=== PATIENT | male | born 1950 | race Caucasian/White ===

== ENCOUNTER 2020-12-14 10:21 | Outpatient (REF) | payer OTHER, SELFPAY ==
[2020-12-14 11:15] LABS: MANUAL DIFF FLAG NO
[2020-12-14 11:24] LABS: Basophils Absolute Auto 0.1 X10*3/uL (0.0-0.2); Basophils Percent Auto 1.6 % (0-2); Eosinophils Absolute Auto 0.5 X10*3/uL (0.0-0.4); Eosinophils Percent Auto 7.4 % (0-4); Hematocrit 50.7 % (42-52); Hemoglobin 17.6 g/dl (14.0-18.0); Imm Gran Abs Auto 0.01 X10*3/uL (0.00-0.03); Imm Gran Pct Auto 0.2 % (0.0-0.4); Lymphocytes Absolute Auto 2.1 X10*3/uL (1.2-4.9); Lymphocytes Percent Auto 33.6 % (20-40); Mean Corpuscular HGB Conc 34.7 g/dl (31.0-36.0); Mean Corpuscular Hemoglobin 30.3 pg (27.0-33.0); Mean Corpuscular Volume 87.4 fL (80-98); Mean Platelet Volume 10.6 fL (9.4-12.4); Monocytes Absolute Auto 0.5 X10*3/uL (0.1-1.2); Monocytes Percent Auto 8.3 % (2-11); Neutrophils Absolute Auto 3.1 X10*3/uL (2.0-8.3); Neutrophils Percent Auto 48.9 % (45-73); Platelet Count 277 X10*3/uL (160-400); Red Cell Distribution Width 13.5 % (11.0-16.0); White Blood Count 6.4 X10*3/uL (4.8-10.8)
[2020-12-14 11:38] LABS: Glucose Urine UA NEG (NEG); Leukocyte Esterase Urine NEG (NEG); Nitrite Urine NEG (NEG); Urine Blood NEG (NEG); Urine Ketones NEG (NEG); Urine Protein NEG (NEG-TRACE)
[2020-12-14 11:43] LABS: Alanine Aminotransferase 24 U/L (0-40); Albumin Level 4.2 g/dL (3.5-5.0); Alkaline Phosphatase 83 U/L (39-117); Anion Gap 13 (12-20); Aspartate Amino Transferase 18 U/L (5-37); Blood Urea Nitrogen 11 mg/dL (9-16); Calcium 9.4 mg/dL (8.4-10.2); Carbon Dioxide 24 mmol/L (22-29); Chloride 106 mmol/L (96-108); Cholesterol 182 mg/dL; Estimated Glomerular Filt Rate > 60; Glucose Fasting 112 mg/dL (60-99); HDL Cholesterol 53 mg/dL; LDL Cholesterol Calculated 103 mg/dl; Potassium 4.2 mmol/L (3.3-5.1); Sodium 139 mmol/L (135-145); Total Protein 6.9 g/dL (6.5-8.0); Triglycerides 132 mg/dL
[2020-12-14 11:46] LABS: Appearance Urine CLEAR; Color Urine YELLOW
[2020-12-14 11:52] LABS: Prostate Specific Antigen Scr 1.36 ng/mL (<0.05-4.0)
== END 2020-12-14 10:22 | disposition home or self-care (01) ==
LOC: HO.HMGCLDS 10:21
PROVIDERS: PCP Internal Medicine; Visit Provider Internal Medicine
DX: Z00.00 Encounter for general adult medical examination without abnormal findings (principal); I10 Essential (primary) hypertension; M19.90 Unspecified osteoarthritis, unspecified site; N40.0 Benign prostatic hyperplasia without lower urinary tract symptoms
CPT/HCPCS: 36415; 80053; 80061; 81003; 84153; 85025

== ENCOUNTER 2021-11-02 13:25 | Outpatient (REF) | payer OTHER, SELFPAY ==
[2021-11-02 16:33] LABS: MANUAL DIFF FLAG NO
[2021-11-02 16:39] LABS: Basophils Absolute Auto 0.1 X10*3/uL (0.0-0.2); Eosinophils Absolute Auto 0.3 X10*3/uL (0.0-0.4); Eosinophils Percent Auto 3.5 % (0-4); Hematocrit 52.4 % (42.0-52.0); Imm Gran Abs Auto 0.04 X10*3/uL (0.00-0.03); Imm Gran Pct Auto 0.4 % (0.0-0.4); Lymphocytes Absolute Auto 2.3 X10*3/uL (1.2-4.9); Lymphocytes Percent Auto 24.8 % (20-40); Mean Corpuscular HGB Conc 34.4 g/dl (31.0-36.0); Mean Corpuscular Hemoglobin 31.1 pg (27.0-33.0); Mean Corpuscular Volume 90.5 fL (80.0-98.0); Mean Platelet Volume 11.1 fL (9.4-12.4); Monocytes Absolute Auto 0.8 X10*3/uL (0.1-1.2); Monocytes Percent Auto 8.5 % (2-11); Neutrophils Absolute Auto 5.8 x10*3/uL (2.0-8.3); Neutrophils Percent Auto 61.8 % (45-73); Platelet Count 315 X10*3/uL (160-400); Red Blood Count 5.79 X10*6/uL (4.60-5.80); Red Cell Distribution Width 12.8 % (11.0-16.0); White Blood Count 9.4 X10*3/uL (4.8-10.8)
[2021-11-02 16:55] LABS: Alanine Aminotransferase 16 U/L (0-40); Albumin Level 4.3 g/dL (3.5-5.0); Alkaline Phosphatase 86 U/L (39-117); Anion Gap 16 (12-20); Aspartate Amino Transferase 10 U/L (5-37); Blood Urea Nitrogen 14 mg/dL (9-16); Calcium 10.1 mg/dL (8.4-10.2); Carbon Dioxide 22 mmol/L (22-29); Chloride 104 mmol/L (96-108); Estimated Glomerular Filt Rate > 60; Glucose Random 107 mg/dL (60-115); Iron 153 mcg/dL (45-160); Percent Iron Saturation 48 % (15-50); Potassium 4.3 mmol/L (3.3-5.1); Sodium 138 mmol/L (135-145); Total Iron Binding Capacity 317 mcg/dL (228-428); Total Protein 7.3 g/dL (6.5-8.0); Unsaturated Iron Binding 164 ug/dL
[2021-11-02 17:15] LABS: Ferritin 48 ng/mL (20-250)
== END 2021-11-02 13:26 | disposition home or self-care (01) ==
LOC: HO.HMGCLDS 13:25
PROVIDERS: Visit Provider Internal Medicine
DX: I12.9 Hypertensive chronic kidney disease with stage 1 through stage 4 chronic kidney disease, or unspecified chronic kidney disease (principal); N18.9 Chronic kidney disease, unspecified; I10 Essential (primary) hypertension; K21.9 Gastro-esophageal reflux disease without esophagitis; E83.119 Hemochromatosis, unspecified
CPT/HCPCS: 36415; 80053; 82728; 83540; 85025

== ENCOUNTER 2022-01-30 09:42 | Outpatient (REF) | payer OTHER, SELFPAY ==
[2022-01-30 12:00] LABS: Prostate Specific Antigen 1.61 ng/mL (<0.05-4.0)
[2022-01-30 12:07] LABS: Cholesterol 171 mg/dL; HDL Cholesterol 57 mg/dL; LDL Cholesterol Calculated 98 mg/dl; Triglycerides 81 mg/dL
== END 2022-01-30 09:43 | disposition home or self-care (01) ==
LOC: HO.HMGCLDS 09:42
PROVIDERS: PCP Internal Medicine; Visit Provider Internal Medicine
DX: Z12.5 Encounter for screening for malignant neoplasm of prostate (principal); N40.0 Benign prostatic hyperplasia without lower urinary tract symptoms; I10 Essential (primary) hypertension; K21.9 Gastro-esophageal reflux disease without esophagitis
CPT/HCPCS: 36415; 80061; 84153

== ENCOUNTER 2022-04-25 09:59 | Outpatient (REF) | payer OTHER, MEDICARE, SELFPAY ==
[2022-04-25 10:31] LABS: MANUAL DIFF FLAG NO
[2022-04-25 10:36] LABS: Basophils Absolute Auto 0.1 X10*3/uL (0.0-0.2); Basophils Percent Auto 1.8 % (0-2); Eosinophils Absolute Auto 0.4 X10*3/uL (0.0-0.4); Eosinophils Percent Auto 5.1 % (0-4); Hematocrit 51.4 % (42.0-52.0); Hemoglobin 17.9 g/dl (14.0-18.0); Imm Gran Abs Auto 0.03 X10*3/uL (0.00-0.03); Imm Gran Pct Auto 0.4 % (0.0-0.4); Lymphocytes Absolute Auto 2.1 X10*3/uL (1.2-4.9); Mean Corpuscular HGB Conc 34.8 g/dl (31.0-36.0); Mean Corpuscular Hemoglobin 32.3 pg (27.0-33.0); Mean Corpuscular Volume 92.8 fL (80.0-98.0); Mean Platelet Volume 10.3 fL (9.4-12.4); Monocytes Absolute Auto 0.7 X10*3/uL (0.1-1.2); Monocytes Percent Auto 10.1 % (2-11); Neutrophils Absolute Auto 3.7 x10*3/uL (2.0-8.3); Neutrophils Percent Auto 52.6 % (45-73); Platelet Count 257 X10*3/uL (160-400); Red Blood Count 5.54 X10*6/uL (4.60-5.80); Red Cell Distribution Width 13.1 % (11.0-16.0)
[2022-04-25 11:05] LABS: Alanine Aminotransferase 20 U/L (0-40); Albumin Level 4.3 g/dL (3.5-5.0); Alkaline Phosphatase 76 U/L (39-117); Anion Gap 15 (12-20); Aspartate Amino Transferase 14 U/L (5-37); Bilirubin Total 0.9 mg/dL (0.0-1.0); Blood Urea Nitrogen 12 mg/dL (9-16); Calcium 9.5 mg/dL (8.4-10.2); Carbon Dioxide 25 mmol/L (22-29); Chloride 103 mmol/L (96-108); Estimated Glomerular Filt Rate 56; Glucose Random 115 mg/dL (60-115); Sodium 139 mmol/L (135-145); Total Protein 7.1 g/dL (6.5-8.0)
== END 2022-04-25 10:00 | disposition home or self-care (01) ==
LOC: HO.10HDL 09:59
PROVIDERS: Visit Provider Internal Medicine
DX: I10 Essential (primary) hypertension (principal); E78.00 Pure hypercholesterolemia, unspecified; K21.9 Gastro-esophageal reflux disease without esophagitis
CPT/HCPCS: 36415; 80053; 85025

== ENCOUNTER 2022-05-29 10:26 | Day surgery (SDC) | payer OTHER, MEDICARE, SELFPAY ==
[2022-05-24 12:40] VITALS: BMI 31.6
--- NOTE | 2022-05-26 13:56 | P.CONAN_ITS ---
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 GERD (gastroesophageal reflux disease) Hemochromatosis, hereditary HTN (hypertension) Insomnia On beta sukhwinder at home Tubular adenoma Surgical History Surgical History History of esophagogastroduodenoscopy (EGD) History of lumbar discectomy Hx of colonoscopy Hx of left knee surgery Social History Social History Patient Tobacco Use Status: Former Tobacco user Are you DNR?: No Advance Directives: No Advance Directives Information Provided: Yes Nutrition Risks: No Nutritional Risk Meds Allergies Allergy/AdvReac Type Severity Reaction Status Date / Time shrimp Allergy Unknown HIVES Verified 05/29/22 10:56 lisinopril Allergy Unknown Verified 05/29/22 10:56 LOBSTER Allergy Unknown HIVES Uncoded 05/24/22 12:35 Home Medications Medication Instructions Recorded Confirmed Last Taken Type amlodipine 10 mg tablet 10 mg PO DAILY 05/24/22 05/24/22 05/29/22 History losartan 25 mg tablet 25 mg PO DAILY 05/24/22 05/24/22 05/29/22 History metoprolol succinate 50 mg 50 mg PO DAILY 05/24/22 05/24/22 05/29/22 History tablet,extended release 24 hr omeprazole 20 mg capsule,delayed 20 mg PO DAILY 05/24/22 05/24/22 05/29/22 History release Exam Exam Date and Time: May 26, 2022 1356 Height,Weight and Vital Signs: Height 5 ft 11 in Weight 102.965 kg Pertinent Lab Results Pertinent Lab Results: Laboratory Tests 04/25/22 04/25/22 10:05 10:05 WBC 7.0 Hgb 17.9 Hct 51.4 Plt Count 257 Sodium 139 Potassium 4.0 Chloride 103 Carbon Dioxide 25 BUN 12 Creatinine 1.28 Assessment and Plan Assessment Anesthesia Assessment: Chart Reviewed Documented by User: Petrona Reyna MD 05/29/22 11:34 PMFSH Active Problems Active Problems: Denies MATT Past Medical History Medical History Anxiety Back pain Barretts esophagus Failed total left knee replacement GERD (gastroesophageal reflux disease) Hemochromatosis, hereditary HTN (hypertension) Insomnia On beta sukhwinder at home Tubular adenoma Family History Family history of problems with anesthesia: No Surgical History Surgical History History of esophagogastroduodenoscopy (EGD) History of lumbar discectomy Hx of colonoscopy Hx of left knee surgery History of Problems with Anesthesia: No Social History Social History Patient Tobacco Use Status: Former Tobacco user Are you DNR?: No Advance Directives: No Advance Directives Information Provided: Yes Nutrition Risks: No Nutritional Risk Meds Allergies Allergy/AdvReac Type Severity Reaction Status Date / Time shrimp Allergy Unknown HIVES Verified 05/29/22 10:56 lisinopril Allergy Unknown Verified 05/29/22 10:56 LOBSTER Allergy Unknown HIVES Uncoded 05/24/22 12:35 Home Medications Medication Instructions Recorded Confirmed Last Taken Type amlodipine 10 mg tablet 10 mg PO DAILY 05/24/22 05/24/22 05/29/22 History losartan 25 mg tablet 25 mg PO DAILY 05/24/22 05/24/22 05/29/22 History metoprolol succinate 50 mg 50 mg PO DAILY 05/24/22 05/24/22 05/29/22 History tablet,extended release 24 hr omeprazole 20 mg capsule,delayed 20 mg PO DAILY 05/24/22 05/24/22 05/29/22 History release Exam Height,Weight and Vital Signs: Height 5 ft 11 in Weight 102.965 kg Vital Signs Temp Pulse Resp BP Pulse Ox O2 Del Method 05/29/22 10:45 98.4 F 97 17 116/57 L 98 Room Air Airway Mallampati Class: III TM Dist: >3cm Neck ROM: Full Loose/Missing/Broken Teeth: Yes (Some missing) Heart: RRR Lungs: CTAB Assessment and Plan Assessment Anesthesia Assessment: Anesthesia Plan Discussed Final Anesthetic Review Family History of Problems with Anesthesia: No History of Problems with Anesthesia: No NPO: Yes ASA Class: III Final Preanesthetic Review: No Changes in Pt Med Stat, Meds/Allgs Chart Reviewed, Consent Obtained/Reviewed and Anes Risks/Benef Reviewed Patient Risk: Intermediate Procedure Risk: Low Assessment/Block/Sedation in SS: Assess/Block/Sedation-SS Anesthetic Plan Anesthetic Plan: MAC: Disposition: Standard PACU
[2022-05-29 10:45] VITALS: BP 116/57; PULSE 97; RESP 17; TEMP 36.9; O2SAT 98
[2022-05-29] MEDS: Lactated Ringers 1,000 ML 100 ML IVCONT (10:57)
[2022-05-29 12:54] VITALS: BP 158/90; PULSE 63; RESP 24; TEMP 36.1; O2SAT 96
--- NOTE | 2022-05-29 12:57 | PM.OP ---
Brief Operative Note Date of Service: 05/29/22 Pre-op diagnosis: Silveira's, Screening Post-op diagnosis: other (Same, Hiatal hernia, Colon polyps, Cecal AVM's) Procedure: EGD with bx, Colonoscopy to the cecum with bx/removal of polyps Surgeon: Nikolas Paige Anesthesia: MAC Was an Manufacturing Team Member used for this Procedure?: No Estimated blood loss (mL): 2.0 Pathology: other (A. EG Junction at 39cm B. Submucosal antral lesion C. Ascending colon polyp D. Polyp at 40cm) Condition: stable Disposition: PACU
[2022-05-29 13:09] VITALS: BP 175/95; PULSE 55; RESP 20; O2SAT 98
[2022-05-29 13:24] VITALS: PULSE 58; RESP 20; TEMP 36.1; O2SAT 98
--- NOTE | 2022-05-29 23:29 | OP_ITS ---
SURGEON: Nikolas Paige MD INDICATIONS: The patient presents for evaluation of Silveira esophagus, personal history of tubular adenomas of the colon, and colorectal cancer screening. Full consent has been obtained from him for both procedures, including risks of bleeding and perforation. PREOPERATIVE DIAGNOSIS: POSTOPERATIVE DIAGNOSIS: PROCEDURE PERFORMED: Esophagogastroduodenoscopy with biopsies, and colonoscopy to the cecum with biopsy and removal of polyps. ESTIMATED BLOOD LOSS: COMPLICATIONS: ANESTHESIA: Monitored anesthesia care. ASSISTANTS: SPECIMENS: PREOPERATIVE DIAGNOSES: History of Silveira esophagus, history of tubular adenoma of the colon, colorectal cancer screening. POSTOPERATIVE DIAGNOSES: History of Silveira esophagus, history of tubular adenoma of the colon, colorectal cancer screening, hiatal hernia, colon polyps, angiodysplasia of colon. DESCRIPTION OF PROCEDURE: The patient was placed in the left lateral decubitus position. The Olympus videogastroscope was passed in the posterior oropharynx and upper esophagus under direct vision. The scope was passed slowly into the distal esophagus. The gastroesophageal junction appeared at 39 cm. There was some slight irregularity consistent with reflux and possibly small, less than 1 cm, areas of Silveira mucosa. There was no esophagitis, nor any lesions. The scope entered the stomach. There was a small to moderate-sized hiatal hernia. The scope was advanced to pylorus and duodenum was cannulated to the descending portion. The duodenum including the bulb appeared normal without mass or ulceration. The scope was withdrawn back to the stomach. The gastric antrum and body appeared normal other than, what appeared to be, a submucosal lesion in the gastric antrum consistent with either a lipoma or perhaps a benign leiomyoma. The overlying mucosa was normal. It was relatively soft when probed with a biopsy forceps. Biopsies were obtained from it. There was good peristalsis. Scope was retroflexed visualizing the proximal stomach carefully, which appeared normal, without any sign of mass or ulceration. Scope was straightened and withdrawn back to the esophagus. Multiple biopsies were obtained at the EG junction at 39 cm. Proximal to this, the esophageal mucosa appeared normal. The scope was withdrawn from the patient. He was turned around for colonoscopy. The digital rectal exam revealed no abnormalities. The Olympus video pediatric colonoscope was entered into the rectum and advanced easily to the cecum. Once in the cecum, I did identify cecal pouch with normal-appearing appendiceal orifice and normal-appearing ileocecal valve. There were less than 5 mm nonbleeding angiodysplasias in the cecum. The remainder of the cecum appeared normal. Scope was then slowly withdrawn assessing all mucosal surfaces carefully. Preparation was excellent. In the ascending colon and at 40 cm were flat less than 5 mm polyps, each of which were biopsied and completely removed with a cold biopsy forceps. I did not visualize any other polyps, colitis, nor angiodysplasia. There was a moderate amount of sigmoid diverticulosis. In the rectum, scope was retroflexed visualizing internal hemorrhoids, but no other pathology. The rectal mucosa appeared normal. The scope was straightened and withdrawn from the patient. He tolerated the procedure well and was returned to the recovery area in stable condition. IMPRESSION: 1. Hiatal hernia, gastroesophageal reflux, history of Silveira esophagus. 2. Benign submucosal gastric lesion, status post biopsy. 3. Nonbleeding cecal angiodysplasias. 4. Small colon polyps. 5. Diverticulosis. 6. Internal hemorrhoids. PLAN: The results of the biopsy will be checked. I would recommend a repeat upper endoscopy and colonoscopy in 5 years for further surveillance. He was advised to continue his daily omeprazole. He was advised not to use any aspirin and NSAIDs for 1 week. MD SYED Le/JOSEPH / [id number]
== END 2022-05-29 13:55 | disposition home or self-care (01) ==
PROVIDERS: PCP Internal Medicine; Visit Provider Internal Medicine
PROC: (CPT 45380; principal; 2022-05-29 11:30)
DX: Z12.11 Encounter for screening for malignant neoplasm of colon (principal); Z86.010 Personal history of colon polyps; D12.2 Benign neoplasm of ascending colon; K63.5 Polyp of colon; K55.20 Angiodysplasia of colon without hemorrhage; K57.30 Diverticulosis of large intestine without perforation or abscess without bleeding; K64.8 Other hemorrhoids; K22.70 Barrett's esophagus without dysplasia; K21.9 Gastro-esophageal reflux disease without esophagitis; K44.9 Diaphragmatic hernia without obstruction or gangrene; E83.110 Hereditary hemochromatosis; I10 Essential (primary) hypertension; F41.1 Generalized anxiety disorder; G47.00 Insomnia, unspecified; Z79.899 Other long term (current) drug therapy; Z87.891 Personal history of nicotine dependence
CPT/HCPCS: 45380; 43239; 88305; 88342

== ENCOUNTER 2022-09-20 09:05 | Outpatient (REF) | payer MEDICARE, OTHER, SELFPAY ==
[2022-09-20 12:11] LABS: Anion Gap 14 (12-20); Blood Urea Nitrogen 9 mg/dL (9-16); Calcium 9.8 mg/dL (8.4-10.2); Carbon Dioxide 25 mmol/L (22-29); Chloride 105 mmol/L (96-108); Estimated Glomerular Filt Rate 58; Glucose Random 115 mg/dL (60-115); Potassium 4.2 mmol/L (3.3-5.1); Sodium 140 mmol/L (135-145)
== END 2022-09-20 09:06 | disposition home or self-care (01) ==
LOC: HO.HMGCLDS 09:05
PROVIDERS: PCP Internal Medicine; Visit Provider Internal Medicine
DX: I12.9 Hypertensive chronic kidney disease with stage 1 through stage 4 chronic kidney disease, or unspecified chronic kidney disease (principal); N18.9 Chronic kidney disease, unspecified
CPT/HCPCS: 36415; 80048

== ENCOUNTER 2022-11-09 11:30 | Outpatient (REF) | payer MEDICARE, OTHER, SELFPAY ==
--- NOTE | ~2022-11-09 | XR_ITS ---
EXAMINATION: XR CHEST CLINICAL INFORMATION: Hypertension. COMPARISON: None TECHNIQUE: 2 views of the chest were obtained. FINDINGS: No significant abnormality is noted involving the heart, lungs, mediastinum, bony thorax or soft tissues. XR/XR chest 2V IMPRESSION: No acute cardiopulmonary process.
[2022-11-09 13:56] LABS: MANUAL DIFF FLAG NO
[2022-11-09 14:20] LABS: Basophils Absolute Auto 0.1 X10*3/uL (0.0-0.2); Basophils Percent Auto 1.4 % (0-2); Eosinophils Absolute Auto 0.4 X10*3/uL (0.0-0.4); Hematocrit 54.2 % (42.0-52.0); Hemoglobin 19.1 g/dl (14.0-18.0); Imm Gran Abs Auto 0.04 X10*3/uL (0.00-0.03); Imm Gran Pct Auto 0.5 % (0.0-0.4); Lymphocytes Absolute Auto 2.3 X10*3/uL (1.2-4.9); Lymphocytes Percent Auto 25.7 % (20-40); Mean Corpuscular HGB Conc 35.2 g/dl (31.0-36.0); Mean Corpuscular Hemoglobin 32.4 pg (27.0-33.0); Mean Platelet Volume 10.5 fL (9.4-12.4); Monocytes Absolute Auto 0.8 X10*3/uL (0.1-1.2); Monocytes Percent Auto 9.6 % (2-11); Neutrophils Absolute Auto 5.2 x10*3/uL (2.0-8.3); Neutrophils Percent Auto 58.8 % (45-73); Platelet Count 351 X10*3/uL (160-400); Red Blood Count 5.89 X10*6/uL (4.60-5.80); Red Cell Distribution Width 12.7 % (11.0-16.0); White Blood Count 8.8 X10*3/uL (4.8-10.8)
[2022-11-09 14:23] LABS: D Dimer High Sensitivity 183 NG/ML
[2022-11-09 14:39] LABS: B Type Natriuretic Peptide 30 pg/mL (<100)
[2022-11-09 16:34] LABS: Alanine Aminotransferase 18 U/L (0-40); Albumin Level 4.2 g/dL (3.5-5.0); Alkaline Phosphatase 89 U/L (39-117); Anion Gap 14 (12-20); Aspartate Amino Transferase 12 U/L (5-37); Bilirubin Total 0.9 mg/dL (0.0-1.0); Blood Urea Nitrogen 16 mg/dL (9-16); C Reactive Protein 0.94 mg/dL (< or = 0.50); Carbon Dioxide 24 mmol/L (22-29); Chloride 103 mmol/L (96-108); Estimated Glomerular Filt Rate 52; Glucose Random 109 mg/dL (60-115); Potassium 4.3 mmol/L (3.3-5.1); Sodium 137 mmol/L (135-145); Total Protein 6.9 g/dL (6.5-8.0)
[2022-11-09 16:56] LABS: Vitamin B12 438 pg/mL (200-900)
== END 2022-11-09 11:31 | disposition home or self-care (01) ==
LOC: HO.HMGCLDS 11:30
PROVIDERS: PCP Internal Medicine; Visit Provider Internal Medicine
DX: R53.83 Other fatigue (principal); I10 Essential (primary) hypertension
CPT/HCPCS: 36415; 71046; 80053; 82550; 82607; 83880; 84443; 85025; 85379; 86140

== ENCOUNTER 2023-08-21 10:59 | Outpatient (REF) | payer MEDICARE, OTHER, SELFPAY ==
[2023-08-21 13:44] LABS: MANUAL DIFF FLAG NO
[2023-08-21 13:51] LABS: Basophils Absolute Auto 0.1 X10*3/uL (0.0-0.2); Basophils Percent Auto 1.4 % (0-2); Eosinophils Absolute Auto 0.3 X10*3/uL (0.0-0.4); Eosinophils Percent Auto 3.2 % (0-4); Hematocrit 54.2 % (42.0-52.0); Hemoglobin 18.6 g/dl (14.0-18.0); Imm Gran Abs Auto 0.03 X10*3/uL (0.00-0.03); Imm Gran Pct Auto 0.4 % (0.0-0.4); Lymphocytes Absolute Auto 2.2 X10*3/uL (1.2-4.9); Lymphocytes Percent Auto 28.2 % (20-40); Mean Corpuscular HGB Conc 34.3 g/dl (31.0-36.0); Mean Corpuscular Hemoglobin 31.7 pg (27.0-33.0); Mean Corpuscular Volume 92.5 fL (80.0-98.0); Mean Platelet Volume 10.9 fL (9.4-12.4); Monocytes Absolute Auto 0.7 X10*3/uL (0.1-1.2); Monocytes Percent Auto 8.9 % (2-11); Neutrophils Absolute Auto 4.6 x10*3/uL (2.0-8.3); Neutrophils Percent Auto 57.9 % (45-73); Platelet Count 308 X10*3/uL (160-400); Red Blood Count 5.86 X10*6/uL (4.60-5.80); Red Cell Distribution Width 12.7 % (11.0-16.0); White Blood Count 7.9 X10*3/uL (4.8-10.8)
[2023-08-21 14:35] LABS: Prostate Specific Antigen 6.85 ng/mL (<0.05-4.0)
[2023-08-21 14:36] LABS: Alanine Aminotransferase 26 U/L (0-40); Albumin Level 4.2 g/dL (3.5-5.0); Alkaline Phosphatase 74 U/L (39-117); Anion Gap 15 (12-20); Aspartate Amino Transferase 15 U/L (5-37); Bilirubin Total 0.7 mg/dL (0.0-1.0); Blood Urea Nitrogen 11 mg/dL (9-16); Calcium 9.7 mg/dL (8.4-10.2); Carbon Dioxide 24 mmol/L (22-29); Chloride 104 mmol/L (96-108); Cholesterol 160 mg/dL (<200); Estimated Glomerular Filt Rate > 60; Glucose Fasting 114 mg/dL (60-99); HDL Cholesterol 54 mg/dL (>40); LDL Cholesterol Calculated 82 mg/dL (<100); Potassium 3.9 mmol/L (3.3-5.1); Sodium 139 mmol/L (135-145); Total Protein 7.3 g/dL (6.5-8.0); Triglycerides 122 mg/dL (<150)
== END 2023-08-21 11:00 | disposition home or self-care (01) ==
LOC: HO.HMGCLDS 10:59
PROVIDERS: PCP Internal Medicine; Visit Provider Internal Medicine
DX: I12.9 Hypertensive chronic kidney disease with stage 1 through stage 4 chronic kidney disease, or unspecified chronic kidney disease (principal); N18.9 Chronic kidney disease, unspecified; K21.9 Gastro-esophageal reflux disease without esophagitis; K57.90 Diverticulosis of intestine, part unspecified, without perforation or abscess without bleeding; Z12.5 Encounter for screening for malignant neoplasm of prostate
CPT/HCPCS: 36415; 80053; 80061; 84153; 85025

== ENCOUNTER 2023-09-21 10:28 | Outpatient (REF) | payer MEDICARE, OTHER, SELFPAY ==
[2023-09-21 14:14] LABS: Ferritin 112 ng/mL (20-250); Iron 170 mcg/dL (45-160); Percent Iron Saturation 64 % (15-50); Total Iron Binding Capacity 264 mcg/dL (228-428); Unsaturated Iron Binding 94 ug/dL
[2023-09-21 14:21] LABS: Prostate Specific Antigen 2.08 ng/mL (<0.05-4.0)
== END 2023-09-21 10:29 | disposition home or self-care (01) ==
LOC: HO.HMGCLDS 10:28
PROVIDERS: PCP Internal Medicine; Visit Provider Internal Medicine
DX: R97.20 Elevated prostate specific antigen [PSA] (principal); R71.8 Other abnormality of red blood cells; Z12.5 Encounter for screening for malignant neoplasm of prostate
CPT/HCPCS: 36415; 82728; 83540; 84153

== ENCOUNTER 2023-12-19 13:08 | Outpatient (REF) | payer MEDICARE, OTHER, SELFPAY ==
[2023-12-19 16:13] LABS: MANUAL DIFF FLAG NO
[2023-12-19 16:26] LABS: Basophils Absolute Auto 0.1 X10*3/uL (0.0-0.2); Basophils Percent Auto 1.4 % (0-2); Eosinophils Absolute Auto 0.6 X10*3/uL (0.0-0.4); Eosinophils Percent Auto 7.2 % (0-4); Hematocrit 45.9 % (42.0-52.0); Imm Gran Abs Auto 0.04 X10*3/uL (0.00-0.03); Imm Gran Pct Auto 0.5 % (0.0-0.4); Lymphocytes Percent Auto 25.4 % (20-40); Mean Corpuscular HGB Conc 34.9 g/dl (31.0-36.0); Mean Corpuscular Hemoglobin 32.1 pg (27.0-33.0); Mean Platelet Volume 10.8 fL (9.4-12.4); Monocytes Absolute Auto 0.9 X10*3/uL (0.1-1.2); Monocytes Percent Auto 12.2 % (2-11); Neutrophils Absolute Auto 4.1 x10*3/uL (2.0-8.3); Neutrophils Percent Auto 53.3 % (45-73); Platelet Count 298 X10*3/uL (160-400); Red Blood Count 4.99 X10*6/uL (4.60-5.80); White Blood Count 7.7 X10*3/uL (4.8-10.8)
[2023-12-19 17:56] LABS: Alanine Aminotransferase 19 U/L (0-40); Albumin Level 3.9 g/dL (3.5-5.0); Alkaline Phosphatase 88 U/L (39-117); Anion Gap 16 (12-20); Aspartate Amino Transferase 16 U/L (5-37); Bilirubin Total 0.5 mg/dL (0.0-1.0); Blood Urea Nitrogen 8 mg/dL (9-16); Calcium 9.6 mg/dL (8.4-10.2); Carbon Dioxide 21 mmol/L (22-29); Chloride 104 mmol/L (96-108); Estimated Glomerular Filt Rate > 60; Ferritin 197 ng/mL (20-250); Glucose Random 88 mg/dL (60-115); Iron 79 mcg/dL (45-160); Percent Iron Saturation 35 % (15-50); Potassium 3.8 mmol/L (3.3-5.1); Sodium 137 mmol/L (135-145); Total Iron Binding Capacity 228 mcg/dL (228-428); Total Protein 7.1 g/dL (6.5-8.0); Unsaturated Iron Binding 149 ug/dL
== END 2023-12-19 13:09 | disposition home or self-care (01) ==
LOC: HO.HMGCLDS 13:08
PROVIDERS: PCP Internal Medicine; Visit Provider Internal Medicine
DX: I10 Essential (primary) hypertension (principal); E83.110 Hereditary hemochromatosis
CPT/HCPCS: 36415; 80053; 82728; 83540; 85025

== ENCOUNTER 2024-02-12 09:39 | Outpatient (REF) | payer MEDICARE, OTHER, SELFPAY ==
[2024-02-12 11:31] LABS: Appearance Urine Clear; Color Urine Yellow; Glucose Urine UA Negative (Negative); Leukocyte Esterase Urine Moderate (2+) (Negative); Nitrite Urine Negative (Negative); PH 5.5 (5.0-9.0); Specific Gravity - Urine 1.015 (1.005-1.025); UMIC TRIGGER UACC YES; Urine Blood Trace (Negative); Urine Ketones Negative (Negative); Urine Protein Trace mg/dL (Neg-Trace)
[2024-02-12 11:33] LABS: Bacteria Urine None Seen (None Seen); Hyaline Casts Urine 0-2 /LPF (0-2); RBC Urine 0-2 /HPF (0-2); Squamous Epithelial Cell Urine 0-2 /HPF (0-2); UACC Culture Trigger YES; WBC Urine >50 /HPF (0-5)
== END 2024-02-12 09:40 | disposition home or self-care (01) ==
LOC: HO.10HDLNP 09:39
PROVIDERS: Visit Provider Internal Medicine
DX: R30.0 Dysuria (principal)
CPT/HCPCS: 81001; 87086

== ENCOUNTER 2024-07-03 11:08 | Outpatient (REF) | payer MEDICARE, OTHER, SELFPAY ==
[2024-07-03 13:25] LABS: MANUAL DIFF FLAG NO
[2024-07-03 14:02] LABS: Basophils Absolute Auto 0.1 X10*3/uL (0.0-0.2); Basophils Percent Auto 1.6 % (0-2); Eosinophils Absolute Auto 0.4 X10*3/uL (0.0-0.4); Eosinophils Percent Auto 4.4 % (0-4); Hemoglobin 19.5 g/dl (14.0-18.0); Imm Gran Abs Auto 0.03 X10*3/uL (0.00-0.03); Imm Gran Pct Auto 0.4 % (0.0-0.4); Lymphocytes Absolute Auto 3.1 X10*3/uL (1.2-4.9); Lymphocytes Percent Auto 36.2 % (20-40); Mean Corpuscular HGB Conc 35.3 g/dl (31.0-36.0); Mean Corpuscular Hemoglobin 31.2 pg (27.0-33.0); Mean Corpuscular Volume 88.2 fL (80.0-98.0); Mean Platelet Volume 11.3 fL (9.4-12.4); Monocytes Absolute Auto 0.9 X10*3/uL (0.1-1.2); Monocytes Percent Auto 10.2 % (2-11); Neutrophils Percent Auto 47.2 % (45-73); Platelet Count 300 X10*3/uL (160-400); Red Blood Count 6.26 X10*6/uL (4.60-5.80); Red Cell Distribution Width 13.9 % (11.0-16.0); White Blood Count 8.5 X10*3/uL (4.8-10.8)
[2024-07-03 14:06] LABS: Hematocrit 55.2 % (42.0-52.0)
[2024-07-03 14:24] LABS: Alanine Aminotransferase 26 U/L (0-40); Albumin Level 4.3 g/dL (3.5-5.0); Alkaline Phosphatase 84 U/L (39-117); Anion Gap 13 (12-20); Aspartate Amino Transferase 23 U/L (5-37); Bilirubin Total 0.8 mg/dL (0.0-1.0); Blood Urea Nitrogen 11 mg/dL (9-16); Calcium 10.1 mg/dL (8.4-10.2); Carbon Dioxide 21 mmol/L (22-29); Chloride 108 mmol/L (96-108); Estimated Glomerular Filt Rate 53; Glucose Random 124 mg/dL (60-115); Iron 218 mcg/dL (45-160); Percent Iron Saturation 76 % (15-50); Potassium 3.9 mmol/L (3.3-5.1); Sodium 138 mmol/L (135-145); Total Iron Binding Capacity 285 mcg/dL (228-428); Total Protein 7.4 g/dL (6.5-8.0); Unsaturated Iron Binding 67 ug/dL
[2024-07-03 14:27] LABS: Ferritin 59 ng/mL (20-250)
== END 2024-07-03 11:09 | disposition home or self-care (01) ==
LOC: HO.HMGCLDS 11:08
PROVIDERS: PCP Internal Medicine; Visit Provider Internal Medicine
DX: I10 Essential (primary) hypertension (principal); K57.90 Diverticulosis of intestine, part unspecified, without perforation or abscess without bleeding
CPT/HCPCS: 36415; 80053; 82728; 83540; 85025

== ENCOUNTER 2024-10-06 11:10 | Outpatient (REF) | payer MEDICARE, OTHER, SELFPAY ==
[2024-10-06 13:14] LABS: MANUAL DIFF FLAG NO
[2024-10-06 13:23] LABS: Basophils Absolute Auto 0.1 X10*3/uL (0.0-0.2); Basophils Percent Auto 1.6 % (0-2); Eosinophils Absolute Auto 0.5 X10*3/uL (0.0-0.4); Eosinophils Percent Auto 5.5 % (0-4); Hematocrit 53.2 % (42.0-52.0); Hemoglobin 18.7 g/dl (14.0-18.0); Imm Gran Abs Auto 0.03 X10*3/uL (0.00-0.03); Imm Gran Pct Auto 0.4 % (0.0-0.4); Lymphocytes Absolute Auto 2.6 X10*3/uL (1.2-4.9); Lymphocytes Percent Auto 31.3 % (20-40); Mean Corpuscular HGB Conc 35.2 g/dl (31.0-36.0); Mean Corpuscular Hemoglobin 31.7 pg (27.0-33.0); Mean Corpuscular Volume 90.2 fL (80.0-98.0); Mean Platelet Volume 11.4 fL (9.4-12.4); Monocytes Absolute Auto 0.8 X10*3/uL (0.1-1.2); Monocytes Percent Auto 10.2 % (2-11); Neutrophils Absolute Auto 4.2 x10*3/uL (2.0-8.3); Platelet Count 292 X10*3/uL (160-400); White Blood Count 8.2 X10*3/uL (4.8-10.8)
[2024-10-06 13:59] LABS: Alanine Aminotransferase 27 U/L (0-40); Albumin Level 4.2 g/dL (3.5-5.0); Alkaline Phosphatase 80 U/L (39-117); Anion Gap 12 (12-20); Aspartate Amino Transferase 23 U/L (5-37); Blood Urea Nitrogen 17 mg/dL (9-16); Calcium 9.2 mg/dL (8.4-10.2); Carbon Dioxide 22 mmol/L (22-29); Chloride 108 mmol/L (96-108); Cholesterol 160 mg/dL (<200); Estimated Glomerular Filt Rate 44; Glucose Fasting 119 mg/dL (60-99); HDL Cholesterol 46 mg/dL (>40); Iron 181 mcg/dL (45-160); LDL Cholesterol Calculated 91 mg/dL (<100); Percent Iron Saturation 73 % (15-50); Potassium 4.1 mmol/L (3.3-5.1); Sodium 138 mmol/L (135-145); Total Iron Binding Capacity 248 mcg/dL (228-428); Total Protein 7.5 g/dL (6.5-8.0); Triglycerides 117 mg/dL (<150); Unsaturated Iron Binding 67 ug/dL
[2024-10-06 14:09] LABS: Prostate Specific Antigen Scr 3.59 ng/mL (<0.05-4.0)
[2024-10-06 14:14] LABS: Ferritin 83 ng/mL (20-250)
--- OUTSIDE RECORDS SUMMARY | 2024-10-06 16:07 | XMS_ITS | Patient Health Record ---
Author Organization [facility] Address [address] [place] [address] Care Team Providers Care Traffic Superintendent Name Role Phone Ketan Billy MD Primary Care Provider Nikolas Eisenberg Unavailable [phone] ALLERGIES Allergen (clinical drug ingredient) Drug/Non Drug Allergy documented on EMR Reaction Allergy Type Onset Date Status lisinopril Lisinopril Unknown Drug Allergy Activ e REASON FOR REFERRAL No Information MEDICATIONS Medication SIG (Take, Route, Frequency, Duration) Notes Start Date End Date Status Metoprolol & Diet Manage Prod 50mg qd Active Omeprazole 20 MG 1 capsule Orally twi ce a day Active Losartan Potassium 25 MG 1 tablet Orally Once a day 02/11/2014 Active amLODIPine Besylate 10 MG Oral for 90 Active IMMUNIZATIONS Vaccine Route Administration Date Status Comme nts Influenza Unknown 08/10/2021 Administered SOCIAL HISTORY Sex Assigned At : Social History Observation Description Sex Assigned At Unknown PROBLEMS Problem Type ICD Code Onset Dates Problem Status W/U Status Risk SNOMED Code Notes Problem Esophageal reflux (K21.9) Active confirmed Esophageal refl ux (321602524) Problem Encounter for screening for malignant neoplasm of colon (Z12.11) Active confirmed 476191413 Problem History of adenomatous polyp of colon (Z86.010) Active confirmed 308185085 Problem Hereditary hemochromatosis (E83.110) Active confirmed 44329710 Problem Encounter for screening for malignant neoplasm of rectum (Z12.12) Active confirmed Screening for malignant neoplasm of rectum (751832814) Problem Barretts esophagus without dysplasia (K22.70) Active confirmed 215785320 Problem 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) Active confirmed Silveira esophag us (032366021) Problem Diverticulosis of sigmoid colon (K57.30) Active confirmed Diverticulosis of sigmoid colon (742321849) Problem GERD without esophagitis (K21.9) Active confirmed Gastroesophagea l reflux disease (524103849) PLAN OF TREATMENT Pending Test Test Name Order Date Pathology 05/29/2022 Future Test Test Name Order Date UPPER GI ENDOSCOPY 07/10/2013 COLONOSCOPY 07/10/2013 UPPER GI ENDOSCOPY 12/13/2016 COLONOSCOPY 12/13/2016 UPPER GI ENDOSCOPY 04/11/2022 COLONOSCOPY 04/11/2022 Insurance Providers Payer Name Payer Address Payer Phone Subscriber Number Group Number Insured Name Patient Relationship to Insured Coverage Start Date Coverage End Date [facility] [address] [place] [phone] [id number] HILARIA PARKS Self - patient is the insured MEDICARE OF [place] [address] [place] [address] [phone] [id number] HILARIA PARKS Self - patient is the insured MEDICAL (GENERAL) HISTORY Medical History History ICD Code Genetic Hemochromatosis--selene gnosed in 2002-had normal LFT's and U/S-never had a liver bx--goes for phlebotomy Q 2 months--Iron was 135 with a sat of 46%, and a Ferritin of 46 in 04/2013--he stopped phlebotmies in 10/2014--normal Iron studies in 05/2016. His ferritin level was 48 in October of 2021. Multiple tubular adenomas removed in 200 4; neg. colonoscopy in 10/2008 hypertension Denies OH,DM,CVA,Lung disease,renal dise ase Back pain--s/p epidural injections Anxiety, insomnia Colonoscopy in 09/2013--several tubular a denomas removed GERD/Silveira's esophagus-EGD in 09/2013-small HH--no dysplasia-small area of Silveira's EGD February of 2017 revealed a small to moderate-sized hiatal hernia but biopsies were negative for Silveira's mucosa; there was no evidence of any esophagitis; gastric biopsies were negative for H. pylori Colonoscopy February of 2017 rev ealed a tubular adenoma that was removed. The exam could not completely reach the cecum and a followup CT with colonography that same day was negative Surgical History Surgery Date(Month/Year) back surgery x 3 knee [id number] removed knee surgery-left knee replacement left knee 06/2021
== END 2024-10-06 11:11 | disposition home or self-care (01) ==
LOC: HO.HMGCLDS 11:10
PROVIDERS: PCP Internal Medicine; Visit Provider Internal Medicine
DX: E78.00 Pure hypercholesterolemia, unspecified (principal); I10 Essential (primary) hypertension; E83.110 Hereditary hemochromatosis; Z12.5 Encounter for screening for malignant neoplasm of prostate
CPT/HCPCS: 36415; 80053; 80061; 82728; 83540; 84153; 85025

== ENCOUNTER 2024-12-18 15:51 | Outpatient (AMB) | payer MEDICARE, OTHER, SELFPAY ==
--- NOTE | 2024-12-18 16:01 | A.OFFPC_ITS ---
Vital Signs 12/18/24 16:03 Height 5 ft 10 in Weight 230 lb BMI 33.0 BP 126/80 Blood Pressure Location Rt brachial Position Sitting Temp 97.3 F Temp Source Axillary Pulse Oximetry (%) 99 Oxygen Delivery Method Room Air Intake Visit Reasons: Routine Forest Fire Prevention Specialist Required: No Accompanied by: Self / Same As Patient Allergies shrimp Allergy (Unknown, Verified 12/18/24 16:16) HIVES lisinopril Allergy (Verified 12/18/24 16:16) Unknown LOBSTER Allergy (Unknown, Uncoded 12/18/24 16:16) HIVES Tobacco use date assessed: 12/18/24 Fall risk assessment: No Falls in past year Last assessed Fall Risk: 12/18/24 Dental Screening Dental Screen Date: 12/18/24 Did you have a dental visit in the last 12 months?: Yes Did you have a dental problem in the last 6 months where you did not have access to dental care?: No HPI HPI Comments History of Present Illness Details The patient is a 74 year old male with a past medical history of hypertension, hemochromatosis, Barrets, GERD, CKD, colonic polyps presenting for follow up CV: On metoprolol 50 daily, losartan 100mg daily, amlodipine 10mg daily. 126/80. Denies chest pain, shortness of breath Heme/onc: HH not followed by hematology. Has had phlebotomy through pcp at [facility] remotely MSK: s/p b/l knee replacement-Dr Lopez GI: 05/2022 double endoscopy Derm: [facility]. ROS see HPI PHYSICAL EXAM: GENERAL: Alert and oriented x 3. NAD EYES: EOMI. Anicteric. HENT: Moist mucous membranes. No scleral icterus. No cervical lymphadenopathy. LUNGS: Clear to auscultation bilaterally. CARDIOVASCULAR: Regular rate and rhythm. No murmur. No JVD. ABDOMEN: Soft, non-tender +bs EXTREMITIES: No edema. Non-tender. SKIN: No rashes or lesions. Warm. NEUROLOGIC: No focal neurological deficits. CN II-XII grossly intact PSYCHIATRIC: Cooperative. Appropriate mood and affect [facility] Medical History On beta sukhwinder at home Failed total left knee replacement Barretts esophagus GERD (gastroesophageal reflux disease) Insomnia Anxiety Back pain HTN (hypertension) Tubular adenoma Hemochromatosis, hereditary Surgical History History of lumbar discectomy History of esophagogastroduodenoscopy (EGD) Hx of colonoscopy Hx of left knee surgery Family History Mother No problems noted. Father No problems noted. Social History Housing: House Patient Tobacco Use Status: Former Tobacco user e-Cigarette/Vaping Use: Former Use service: No Current occupational status: retired Cognitive needs: No Hearing needs: No Vision needs: Yes (reading glasses) Questionnaire PHQ-9 Over the last 2 weeks, how often have you been bothered by any of the following problems? 1. Little interest or pleasure in doing things: not at all 2. Feeling down, depressed, or hopeless: not at all 3. Trouble falling or staying asleep, or sleeping too much: not at all 4. Feeling tired or having little energy: not at all 5. Poor appetite or overeating: not at all 6. Feeling bad about yourself - or that you are a failure or have let yourself or your family down: not at all 7. Trouble concentrating on things, such as reading the newspaper or watching television: not at all 8. Moving or speaking so slowly that other people could have noticed. Or the opposite - being so fidgety or restless that you have been moving around a lot more than usual: not at all 9. Thoughts that you would be better off or of hurting yourself in some way: not at all Total score: 0 Depression Screening Interpretation: Negative Depression Screening Done: Yes 69346 - PHQ-9 Billing: Yes Source: Developed by Drs. Nikolas Pascual, Renuka Rock, Danny Mena and colleagues, with an educational etta from [employer]. Thrive Questionnaire I am a: Patient Within the past 12 months, did the food you bought not last and you didn't have the money to get more?: Never true Within the past 12 months, did you worry whether your food would run out before you got money to buy more?: Never true Do you have trouble paying for medicines?: No Do you have trouble getting transportation to medical appointments?: No Do you have trouble paying your heating and electricity bill?: No Do you have trouble taking care of your child, family member or friend?: No Do you have trouble with day-to-day activities such as bathing, preparing meals, shopping, managing finances, etc.?: No Are you currently unemployed and looking for a job?: No Are you interested in more education?: No THRIVE Score: 0 AUDIT C Alcohol Use Questionnaire (AUDIT-C) 1. How often do you have a drink containing alcohol?: Monthly or less 2. How many drinks containing alcohol do you have on a typical day when you are drinking?: 3 or 4 3. How often do you have six or more drinks on one occasion?: Less than monthly Total Score: 3 JOHAN-7 AMB Questionnaire JOHAN-7 Date JOHAN - 7 assessed: 12/18/24 Feeling nervous, anxious, or on edge: 0 = Not at all Not being able to stop or control worryin = Not at all Worrying too much about different things: 0 = Not at all Trouble relaxin = Not at all Being so restless that it is hard to sit still: 0 = Not at all Becoming easily annoyed or irritable: 0 = Not at all Feeling afraid as if something awful might happen: 0 = Not at all Total JOHAN-7 score (0-4 normal; 5-9 mild; 10-14 moderate; 15-21 severe): 0 Source: Developed by Drs. Nikolas Pascual, Renuka Rock, Danny Mena and colleagues, with an educational etta from [employer]. Physical exam (Primary Care) Vital Signs: Last Vital Signs Temp 97.3 F 12/18/24 16:03 BP 126/80 12/18/24 16:03 Pulse Ox 99 12/18/24 16:03 Oxygen Delivery Method Room Air 12/18/24 16:03 BMI result Body Mass Index 33.0 Tobacco/Smoking Status: Tobacco use Status Tobacco use date assessed 12/18/24 12/18/24 16:23 Patient Tobacco Use Status Former Tobacco user 12/18/24 16:04 e-Cigarette/Vaping Use Former Use 12/18/24 16:23 PHQ-9: PHQ-9 Score PHQ-9: Total score 0 12/21/24 12:38 Depression Screening Interpretation: Negative Coding Level of Care Code New Pt Level 4 (19767) Complex EM visit Add On G2211 Diagnoses Primary hypertension I10 Hypertension type: primary hypertension Gastroesophageal reflux disease, unspecified whether esophagitis present K21.9 Esophagitis presence: esophagitis presence not specified Primary insomnia F51.01 Insomnia type: primary Additional Codes PHQ-9 - 97063 - PHQ-9 Billing: Yes ([id number]) Assessment & Plan Assessment & Plan (1) HTN (hypertension): Code(s): I10 - Essential (primary) hypertension Category: Medical Qualifiers: Hypertension type: primary hypertension Qualified Code(s): I10 - Essential (primary) hypertension (2) GERD (gastroesophageal reflux disease): Code(s): K21.9 - Gastro-esophageal reflux disease without esophagitis Category: Medical Qualifiers: Esophagitis presence: esophagitis presence not specified Qualified Code(s): K21.9 - Gastro-esophageal reflux disease without esophagitis (3) Insomnia: Code(s): G47.00 - Insomnia, unspecified Category: Medical Qualifiers: Insomnia type: primary Qualified Code(s): F51.01 - Primary insomnia Plan 74 y/o to establish care past medical, surgical, social, family history reviewed HH-repeat labs. referral placed to hematology for management. HTN-well controlled on current medication Orders: Orders IRON PROFILE 12/19/24 E83.110 - Hereditary hemochromatosis, G47.00 - Insomnia, unspecified, I10 - Essential (primary) hypertension, K21.9 - Gastro-esophageal reflux disease without esophagitis Hemoglobin A1c 12/19/24 E83.110 - Hereditary hemochromatosis, G47.00 - Insomnia, unspecified, I10 - Essential (primary) hypertension, K21.9 - Gastro- esophageal reflux disease without esophagitis Complete Blood Count Auto Diff 12/19/24 E83.110 - Hereditary hemochromatosis, G47.00 - Insomnia, unspecified, I10 - Essential (primary) hypertension, K21.9 - Gastro-esophageal reflux disease without esophagitis Comprehensive Met. Panel 12/19/24 E83.110 - Hereditary hemochromatosis, G47.00 - Insomnia, unspecified, I10 - Essential (primary) hypertension, K21.9 - Gastro- esophageal reflux disease without esophagitis Referrals Hematology & Oncology Referral E83.110 - Hereditary hemochromatosis, G47.00 - Insomnia, unspecified, I10 - Essential (primary) hypertension, K21.9 - Gastro- esophageal reflux disease without esophagitis Medications: New sildenafil good rx if not covered 100 mg PO DAILY PRN 30 tabs 3RF sexual activity amoxicillin 2,000 mg (4 x 500 mg) PO ONCE PRN 20 tabs 3RF dental work prednisone 40 mg (2 x 20 mg) PO DAILY 10 tabs 0RF
[2024-12-18 16:03] VITALS: BP 126/80; TEMP 36.3; O2SAT 99; BMI 33.0
--- OUTSIDE RECORDS SUMMARY | 2024-12-18 17:55 | XMS_ITS | Patient Health Record ---
Author Organization [facility] Address [address] [place] [address] Care Team Providers Care Nicker And Breaker Name Role Phone Ketan Billy MD Primary Care Provider Nikolas Eisenberg Unavailable [phone] Allergies Allergen (clinical drug ingredient) Drug/Non Drug Allergy documented on EMR Reaction Allergy Type Onset Date Status lisinopril Lisinopril Unknown Drug Allergy Activ e Reason For Referral No Information Medications Medication SIG (Take, Route, Frequency, Duration) Notes Start Date End Date Status Metoprolol & Diet Manage Prod 50mg qd Active Omeprazole 20 MG 1 capsule Orally twi ce a day Active Losartan Potassium 25 MG 1 tablet Orally Once a day 02/11/2014 Active amLODIPine Besylate 10 MG Oral for 90 Active Immunizations Vaccine Route Administration Date Status Comme nts Influenza Unknown 08/10/2021 Administered Problems Problem Type SNOMED Code ICD Code Onset Dates Problem Status W/U Status Risk Notes Problem Esophageal reflux (984065605) Esophageal reflux (K21.9) Active confirmed Problem 588232333 Encounter for screening for malignant neoplasm of colon (Z12.11) Active confirmed Problem 384187666 History of adenomatous polyp of colon (Z86.010) Active confirmed Problem 03102037 Hereditary hemochromatosis (E83.110) Active confirmed Problem Screening for malignant neoplasm of rectum (564492429) Encounter for screening for malignant neoplasm of rectum (Z12.12) Active confirmed Problem 227534478 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 Problem 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 Problem Diverticulosis of sigmoid colon (064794033) Diverticulosis of sigmoid colon (K57.30) Active confirmed Problem Gastroesophageal reflux disease (604913789) GERD without esophagitis (K21.9) Active confirmed Plan Of Treatment Pending Test Test Name Order Date Pathology 05/29/2022 Future Test Test Name Order Date UPPER GI ENDOSCOPY 07/10/2013 COLONOSCOPY 07/10/2013 UPPER GI ENDOSCOPY 12/13/2016 COLONOSCOPY 12/13/2016 UPPER GI ENDOSCOPY 04/11/2022 COLONOSCOPY 04/11/2022 Insurance Providers Payer Name Payer Address Payer Phone Subscriber Number Group Number Insured Name Patient Relationship to Insured Coverage Start Date Coverage End Date [facility] [address] [place] [address] [phone] [id number] HILRAIA PARKS Self - patient is the insured MEDICARE OF [place] [address] [place] [address] [id number] HILARIA PARKS Self - patient is the insured Medical (General) History Medical History History ICD Code Genetic Hemochromatosis--selene [...] 4; neg. colonoscopy in 10/2008 hypertension Denies [place],DM,CVA,Lung disease,renal dise ase Back pain--s/p epidural injections [...] Surgery Date(Month/Year) back surgery x 3 knee [id number] removed knee surgery-left knee replacement left knee 06/2021
== END 2024-12-18 16:50 | disposition home or self-care (01) ==
LOC: HO.HMCHD 15:51
PROVIDERS: PCP Internal Medicine; Visit Provider Internal Medicine
DX: I10 Essential (primary) hypertension (principal); K21.9 Gastro-esophageal reflux disease without esophagitis; F51.01 Primary insomnia

== ENCOUNTER → 2024-12-18 15:51 | Outpatient (BNVA) | payer MEDICARE, OTHER, SELFPAY | PROVIDERS: PCP Internal Medicine; Visit Provider Internal Medicine | DX: I10 Essential (primary) hypertension (principal); K22.70 Barrett's esophagus without dysplasia; K21.9 Gastro-esophageal reflux disease without esophagitis; N18.9 Chronic kidney disease, unspecified; F51.01 Primary insomnia; E83.110 Hereditary hemochromatosis; Z79.899 Other long term (current) drug therapy | CPT/HCPCS: 96127; 99202 ==

== ENCOUNTER 2024-12-19 14:13 | Outpatient (REF) | payer MEDICARE, OTHER, SELFPAY ==
--- OUTSIDE RECORDS SUMMARY | 2024-12-19 14:33 | XMS_ITS | Patient Health Record ---
Author Organization [facility] Address [address] [place] [address] Care Team Providers Care Uniform Force Captain Name Role Phone Ketan Billy MD Primary Care Provider Nikolas Eisenberg Unavailable [phone] Allergies Allergen (clinical drug ingredient) Drug/Non Drug [...] W/U Status Risk Notes Problem Esophageal reflux (993709240) Esophageal reflux (K21.9) Active confirmed Problem 333607764 Encounter for screening for malignant neoplasm of colon (Z12.11) Active confirmed Problem 631250590 History of adenomatous polyp of colon (Z86.010) Active confirmed Problem 93286913 Hereditary hemochromatosis (E83.110) Active confirmed Problem Screening for malignant neoplasm of rectum (654238088) Encounter for screening for malignant neoplasm of rectum (Z12.12) Active confirmed Problem 974035094 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 Problem Silveira esophagus (088103497) 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 colonoscopy in 10/2008 hypertension Denies [place],DM,CVA,Lung disease,renal dise ase Back pain--s/p epidural injections [...] Surgery Date(Month/Year) back surgery x 3 knee tmrexvq-vmtj-lryy removed knee surgery-left knee replacement left knee 06/2021
[2024-12-19 16:04] LABS: MANUAL DIFF FLAG NO
[2024-12-19 16:11] LABS: Basophils Absolute Auto 0.1 X10*3/uL (0.0-0.2); Basophils Percent Auto 1.5 % (0-2); Eosinophils Absolute Auto 0.5 X10*3/uL (0.0-0.4); Eosinophils Percent Auto 6.3 % (0-4); Hemoglobin 19.1 g/dl (14.0-18.0); Imm Gran Abs Auto 0.02 X10*3/uL (0.00-0.03); Imm Gran Pct Auto 0.2 % (0.0-0.4); Lymphocytes Absolute Auto 2.9 X10*3/uL (1.2-4.9); Lymphocytes Percent Auto 34.4 % (20-40); Mean Corpuscular HGB Conc 34.6 g/dl (31.0-36.0); Mean Corpuscular Hemoglobin 31.4 pg (27.0-33.0); Mean Corpuscular Volume 90.8 fL (80.0-98.0); Mean Platelet Volume 10.6 fL (9.4-12.4); Monocytes Absolute Auto 0.8 X10*3/uL (0.1-1.2); Monocytes Percent Auto 9.7 % (2-11); Neutrophils Percent Auto 47.9 % (45-73); Platelet Count 281 X10*3/uL (160-400); Red Blood Count 6.08 X10*6/uL (4.60-5.80); Red Cell Distribution Width 12.9 % (11.0-16.0); White Blood Count 8.5 X10*3/uL (4.8-10.8)
[2024-12-19 16:12] LABS: Hematocrit 55.2 % (42.0-52.0)
[2024-12-19 16:22] LABS: Alanine Aminotransferase 23 U/L (0-40); Albumin Level 4.4 g/dL (3.5-5.0); Alkaline Phosphatase 92 U/L (39-117); Anion Gap 11 (12-20); Aspartate Amino Transferase 21 U/L (5-37); Bilirubin Total 0.7 mg/dL (0.0-1.0); Blood Urea Nitrogen 14 mg/dL (9-16); Calcium 9.8 mg/dL (8.4-10.2); Carbon Dioxide 26 mmol/L (22-29); Chloride 106 mmol/L (96-108); Estimated Glomerular Filt Rate > 60; Glucose Random 100 mg/dL (60-115); Iron 85 mcg/dL (45-160); Percent Iron Saturation 33 % (15-50); Potassium 4.2 mmol/L (3.3-5.1); Sodium 139 mmol/L (135-145); Total Iron Binding Capacity 261 mcg/dL (228-428); Total Protein 7.5 g/dL (6.5-8.0); Unsaturated Iron Binding 176 ug/dL
[2024-12-19 16:24] LABS: Estimated Average Glucose 105 mg/dL; Hemoglobin A1C 176.0607 umol/L; Hemoglobin A1c % 5.3 % (<6.0); Total Hemoglobin (HGBA1C) 5052.9618 umol/L
== END 2024-12-19 14:14 | disposition home or self-care (01) ==
LOC: HO.HMGCLDS 14:13
PROVIDERS: PCP Internal Medicine; Visit Provider Internal Medicine
DX: E83.110 Hereditary hemochromatosis (principal); G47.00 Insomnia, unspecified; K21.9 Gastro-esophageal reflux disease without esophagitis; I10 Essential (primary) hypertension
CPT/HCPCS: 36415; 80053; 83036; 83540; 85025

== ENCOUNTER → 2025-01-12 09:56 | Outpatient (BNV) | payer MEDICARE, OTHER, SELFPAY | PROVIDERS: PCP Internal Medicine; Referring Provider Internal Medicine; Visit Provider Internal Medicine | DX: D45 Polycythemia vera (principal) | CPT/HCPCS: 99204 ==

== ENCOUNTER 2025-01-22 08:49 | Outpatient (REF) | payer MEDICARE, OTHER, SELFPAY ==
--- OUTSIDE RECORDS SUMMARY | 2025-01-22 09:18 | XMS_ITS | Patient Health Record ---
Author Organization [facility] Address [address] [place] [address] Care Team Providers Care Import/Export Clerk Name Role Phone Ketan Billy MD Primary Care Provider Nikolas Eisenberg Unavailable [phone] Allergies Allergen (clinical drug ingredient) Drug/Non Drug [...] W/U Status Risk Notes Problem Esophageal reflux (623702543) Esophageal reflux (K21.9) Active confirmed Problem 147474262 Encounter for screening for malignant neoplasm of colon (Z12.11) Active confirmed Problem 562734143 History of adenomatous polyp of colon (Z86.010) Active confirmed Problem 42657051 Hereditary hemochromatosis (E83.110) Active confirmed Problem Screening for malignant neoplasm of rectum (025065011) Encounter for screening for malignant neoplasm of rectum (Z12.12) Active confirmed Problem 952516866 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 Problem Silveira esophagus (549498061) 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 colonoscopy in 10/2008 hypertension Denies [place],DM,CVA,Lung disease,renal dise ase Back pain--s/p epidural injections [...] Surgery Date(Month/Year) back surgery x 3 knee rtkqqps-tnhk-hkwk removed knee surgery-left knee replacement left knee 06/2021
== END 2025-01-22 08:50 | disposition home or self-care (01) ==
LOC: HO.BBR 08:49
PROVIDERS: PCP Internal Medicine; Visit Provider Internal Medicine
DX: D45 Polycythemia vera (principal)
CPT/HCPCS: 85014; 85018; 99195

== ENCOUNTER 2025-02-19 08:37 | Outpatient (REF) | payer MEDICARE, OTHER, SELFPAY ==
--- OUTSIDE RECORDS SUMMARY | 2025-02-19 08:55 | XMS_ITS | Patient Health Record ---
Author Organization [facility] Address [address] [place] [address] Care Team Providers Care Bass Guitar Teacher Name Role Phone Ketan Billy MD Primary Care Provider Nikolas Eisenberg Unavailable [phone] Allergies Allergen (clinical drug ingredient) Drug/Non Drug [...] W/U Status Risk Notes Problem Esophageal reflux (146311083) Esophageal reflux (K21.9) Active confirmed Problem 833598607 Encounter for screening for malignant neoplasm of colon (Z12.11) Active confirmed Problem 936483284 History of adenomatous polyp of colon (Z86.010) Active confirmed Problem 98794230 Hereditary hemochromatosis (E83.110) Active confirmed Problem Screening for malignant neoplasm of rectum (212582707) Encounter for screening for malignant neoplasm of rectum (Z12.12) Active confirmed Problem 670758196 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 Problem Silveira esophagu s (K22.70) Active confirmed Problem Diverticulosis of sigmoid colon (988911559) Diverticulosis of sigmoid colon (K57.30) Active confirmed Problem Gastroesophageal reflux disease (454918437) GERD without esophagitis (K21.9) Active confirmed Plan [...] Start Date Coverage End Date [facility] [address] [place] [address] [phone] [id number] HILARIA PARKS Self - patient is the insured MEDICARE OF [place] [address] [place] [address] [phone] [id number] HILARIA PARKS Self - patient is the [...] 4; neg. colonoscopy in 10/2008 hypertension Denies [place],DM,CVA,Lung disease,renal dise ase Back pain--s/p epidural injections [...] Surgery Date(Month/Year) back surgery x 3 knee bmgjjce-rpkj-kyez removed knee surgery-left knee replacement left knee 06/2021
== END 2025-02-19 08:38 | disposition home or self-care (01) ==
LOC: HO.BBR 08:37
PROVIDERS: PCP Internal Medicine; Visit Provider Internal Medicine
DX: D75.1 Secondary polycythemia (principal)
CPT/HCPCS: 85018; 99195

== ENCOUNTER 2025-03-23 10:47 | Outpatient (REF) | payer MEDICARE, OTHER, SELFPAY ==
--- OUTSIDE RECORDS SUMMARY | 2025-03-23 11:46 | XMS_ITS | Patient Health Record ---
Author Organization [facility] Address [address] [place] [address] Care Team Providers Care Blackener Name Role Phone Ketan Billy MD Primary Care Provider Nikolas Eisenberg Unavailable [phone] Allergies Allergen (clinical drug ingredient) Drug/Non Drug Allergy documented on EMR Reaction Allergy Type Onset Date Status Lisinopril Unknown Drug Allergy Active Reason For Referral No Information Medications Medication [...] W/U Status Risk Notes Problem Esophageal reflux (458101407) Esophageal reflux (K21.9) Active confirmed Problem 333973377 Encounter for screening for malignant neoplasm of colon (Z12.11) Active confirmed Problem 964031979 History of adenomatous polyp of colon (Z86.010) Active confirmed Problem 81853140 Hereditary hemochromatosis (E83.110) Active confirmed Problem Screening for malignant neoplasm of rectum (454397279) Encounter for screening for malignant neoplasm of rectum (Z12.12) Active confirmed Problem 022890456 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 Problem Silveira esophagus (011614893) 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 colonoscopy in 10/2008 hypertension Denies [place],DM,CVA,Lung disease,renal dise ase Back pain--s/p epidural injections [...] Surgery Date(Month/Year) back surgery x 3 knee nzvrhss-vrkz-zvwi removed knee surgery-left knee replacement left knee 06/2021
== END 2025-03-23 10:48 | disposition home or self-care (01) ==
LOC: HO.BBR 10:47
PROVIDERS: PCP Internal Medicine; Visit Provider Internal Medicine
DX: D75.1 Secondary polycythemia (principal)
CPT/HCPCS: 85018; 99195

== ENCOUNTER 2025-06-23 13:50 | Outpatient (REF) | payer MEDICARE, OTHER, SELFPAY ==
--- OUTSIDE RECORDS SUMMARY | 2025-06-23 16:54 | XMS_ITS | Patient Health Record ---
Author Organization [facility] Address [address] [place] [address] Care Team Providers Care Emergency Department Director Name Role Phone Wenceslao (RETIRED) Ketan [place] Primary Care Provide r Nikolas Taylor Unavailable [phone] Allergies Allergen (clinical drug ingredient) Drug/Non Drug [...] day 02/11/2014 Active amLODIPine Besylate 10 MG Oral; Duration: 90 Active Immunizations Vaccine Route Administration Date Status Comme nts Influenza Unknown 08/10/2021 Administered Problems Problem Type SNOMED Code ICD Code Onset Dates Problem Status W/U Status Risk Notes Problem Esophageal reflux (999148339) Esophageal reflux (K21.9) Active confirmed Problem Screening for malignant neoplasm of colon (419591211) Encounter for screening for malignant neoplasm of colon (Z12.11) Active confirmed Problem History of adenomatous polyp of colon (845780932) History of adenomatous polyp of colon (Z86.010) Active confirmed Problem Hereditary hemochromatosis (21506450) Hereditary hemochromatosis (E83.110) Active confirmed Problem Screening for malignant neoplasm of rectum (690794318) Encounter for screening for malignant neoplasm of rectum (Z12.12) Active confirmed Problem Silveira's esophagus (978421357) Barretts esophagus without dysplasia (K22.70) Active confirmed Problem Silveira esophagus (118073884) 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 colonoscopy in 10/2008 hypertension Denies [place],DM,CVA,Lung disease,renal dise ase Back pain--s/p epidural injections [...] Surgery Date(Month/Year) back surgery x 3 knee coqekpb-varc-wxmb removed knee surgery-left knee replacement left knee 06/2021
== END 2025-06-23 13:51 | disposition home or self-care (01) ==
LOC: HO.BBR 13:50
PROVIDERS: PCP Internal Medicine; Visit Provider Internal Medicine
DX: E83.110 Hereditary hemochromatosis (principal)
CPT/HCPCS: 85014; 85018; 99195

== ENCOUNTER 2025-07-09 14:53 | Outpatient (AMB) | payer MEDICARE, OTHER, SELFPAY ==
--- NOTE | 2025-07-09 14:19 | A.OFFPC_ITS ---
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 He complains of intermittent episodes, occurring every two to three months, where he feels something snap in his jaw upon yawning or coughing, followed by a terrible earache lasting for 10-15 minutes. The patient's hypertension is managed with losartan 100 mg, amlodipine 10 mg, and metoprolol 20 mg, with a recent blood pressure reading of 128/72 mmHg. He has a history of Silveira's disease and takes omeprazole 20 mg twice daily, which has significantly reduced his need for antacids. His last colonoscopy was recent, and he is not due for another until 2026. The patient is being monitored for a blood cancer, for which he undergoes phlebotomy treatments. Initially treated for hemochromatosis for years, he was later diagnosed with blood cancer and now gives blood every three months. The condition is reportedly controlled. He reports significant hip pain that limits his activity, stating his hips are killing me. The patient has a history of bilateral knee replacements. He is a former smoker, having smoked for 40 years and quit 15 years ago. Medical History: - Hypertension - Silveira's esophagus - Blood cancer (monitored by oncology, p ossibly polycythemia) - History of hemochromatosis - Tobacco use disorder, in remission (qu it 15 years ago after smoking for 40 years) - Arthritis of the hip Surgical History: - Bilateral knee replacement Medications: - Losartan 100 mg for hypertension - Amlodipine 10 mg for hypertension - Metoprolol 20 mg for hypertension - Omeprazole 20 mg twice daily for Marietta tt's disease Diagnostic Results: - Labs (December): Blood counts and electro lytes were normal. - Labs (December): A1c was 5.3%. - Labs (September): Total cholesterol was 160 mg/dL and LDL cholesterol was 91 mg/dL. Social History: - Substance Use: Patient is a former smo ker, having smoked for 40 years and quit 15 years ago. - Exercise: He golfs once a week but rep orts that hip pain is a limiting factor for activity. - Functional Status: Previously attended a health club at a senior center 2-3 times per week. [facility], [facility] Medical History (Updated 07/09/25 @ 15:27 by Tima Narayan MD) TMJ dysfunction Osteoarthritis On beta suhkwinder at home Failed total left knee replacement Barretts esophagus GERD (gastroesophageal reflux disease) Insomnia Anxiety Back pain HTN (hypertension) Tubular adenoma Hemochromatosis, hereditary Surgical History (Updated 07/07/25 @ 16:51 by Irene Barron) History of lumbar discectomy History of esophagogastroduodenoscopy (EGD) Hx of colonoscopy (~05/29/22) Hx of left knee surgery Family History Mother No problems noted. Father No problems noted. Social History Household Members: Spouse Housing: House Patient Tobacco Use Status: Former Tobacco user Tobacco use type: Cigarette e-Cigarette/Vaping Use: Former Use Substance Use Type: Marijuana service: Yes (FoxyP2) Current occupational status: retired Cognitive needs: No Hearing needs: No Vision needs: Yes (reading glasses) Questionnaire JOHAN-7 AMB Questionnaire JOHAN-7 Date JOHAN - 7 assessed: 12/18/24 Source: Developed by Drs. Nikolas Pascual, Renuka Rock, Danny Mena and colleagues, with an educational etta from [employer]. Review of Systems Narrative - HEENT: Reports intermittent jaw snapping followed by severe ear pain lasting 10-15 minutes, occurring every 2-3 months. - Musculoskeletal: Reports severe hip pain. - Gastrointestinal: Denies significant acid reflux symptoms on current medication. All systems reviewed & are unremarkable except as reviewed in HPI and above Physical exam (Primary Care) Vital Signs: Last Vital Signs Temp 97.6 F 07/09/25 15:03 Pulse 60 07/09/25 15:03 Resp 18 07/09/25 15:03 BP 128/72 07/09/25 15:03 Pulse Ox 96 07/09/25 15:03 Oxygen Delivery Method Room Air 07/09/25 15:03 BMI result Body Mass Index 31.4 Tobacco/Smoking Status: Tobacco use Status Tobacco use date assessed 12/18/24 07/09/25 14:19 Patient Tobacco Use Status Former Tobacco user 07/09/25 14:19 Tobacco use type Cigarette 07/09/25 14:19 e-Cigarette/Vaping Use Former Use 07/09/25 14:19 Narrative General: +Alert and oriented, Well nourished, No acute distress. Eye: Pupils are equal, round and reactive to light, Intact accommodation, Extraocular movements are intact, Normal conjunctiva, Vision unchanged. HENT: Normocephalic, Atraumatic, Tympanic membranes are clear, Normal hearing, Oral mucosa is moist, No pharyngeal erythema, Ear canals patent. Respiratory: Lungs CTA bilaterally, No wheeze, Respirations are non-labored. Cardiovascular: Regular rate, Regular rhythm, S1 auscultated, S2 auscultated, No murmur, Good pulses equal in all extremities, Normal peripheral perfusion, No edema. Gastrointestinal: Soft, Non-tender, Non-distended, Normal bowel sounds, No organomegaly. Musculoskeletal: Normal range of motion, Normal strength, No tenderness, No swelling, No deformity, Normal gait. Integumentary: Warm, Dry, Meservey, Intact, Desk appearance of skin noted on arms, possibly due to polycythemia. Neurologic: Alert, Oriented, Normal sensory, Normal motor function, No focal defects, Cranial Nerves II-XII are grossly intact, Normal deep tendon reflexes. Psychiatric: Cooperative, Appropriate mood & affect, Normal judgment. Coding Level of Care Code Est Pt Level 4 (47886) Complex EM visit Add On G2211 Diagnoses Primary hypertension I10 Hypertension type: primary hypertension Gastroesophageal reflux disease, unspecified whether esophagitis present K21.9 Esophagitis presence: esophagitis presence not specified Hemochromatosis, hereditary E83.110 Polycythemia D75.1 Osteoarthritis, unspecified osteoarthritis type, unspecified site M19.90 Osteoarthritis location: unspecified site Osteoarthritis type: unspecified TMJ dysfunction M26.609 Assessment & Plan Assessment & Plan (1) HTN (hypertension): Comment: - Blood pressure is well-controlled on the current regimen of losartan, amlodipine, and metoprolol. - The plan is to continue current medications and provide refills Code(s): I10 - Essential (primary) hypertension Category: Medical Qualifiers: Hypertension type: primary hypertension Qualified Code(s): I10 - Essential (primary) hypertension (2) GERD (gastroesophageal reflux disease): Comment: - Symptoms are well-controlled on omeprazole 20 mg twice daily. - The patient will continue this medication as directed by his grubber. - Refills will be provided. - His next colonoscopy is not due until 2026. Code(s): K21.9 - Gastro-esophageal reflux disease without esophagitis Category: Medical Qualifiers: Esophagitis presence: esophagitis presence not specified Qualified Code(s): K21.9 - Gastro-esophageal reflux disease without esophagitis (3) Hemochromatosis, hereditary: Comment: DX 2002, stopped Phlebotomies in 2014 Code(s): E83.110 - Hereditary hemochromatosis Category: Medical (4) Polycythemia: Comment: - Currently gets q2 Month phlebotomy to assist with sytmpoms. Code(s): D75.1 - Secondary polycythemia Category: Medical (5) Osteoarthritis: Comment: - The patient experiences significant pain that limits his activity. - He was encouraged to increase his physical activity and work through the pain, with the suggestion to return to his senior center's health club. - He was advised on using Tylenol or ibuprofen cautiously and trying glucosamine supplements. - An X-ray of the hips will be ordered. - A referral to orthopedics will be considered if symptoms worsen. Code(s): M19.90 - Unspecified osteoarthritis, unspecified site Category: Medical Qualifiers: Osteoarthritis location: unspecified site Osteoarthritis type: unspecified Qualified Code(s): M19.90 - Unspecified osteoarthritis, unspecified site (6) TMJ dysfunction: Comment: - The patient reports infrequent episodes of jaw popping and ear pain. - Reassurance was provided. - Plan includes conservative management with massage, warm compresses, and ibuprofen as needed. - Referral to an oral maxillofacial surgeon is not indicated at this time unless symptoms become debilitating. Code(s): M26.609 - Unspecified temporomandibular joint disorder, unspecified side Category: Medical Plan: Health Maintenance: - Lung cancer screening: Patient is not a candidate as he quit smoking more than 15 years ago. - Colonoscopy: Next screening is not due until 2026. - Labs: Deferred for six months; will order labs to be done before the next physical. - Follow-up: Scheduled for a physical in six months. - Healthy lifestyle: Encouraged to increase physical activity by returning to the [employer] to help manage hip pain and overall health. - Supplements: Discussed taking keea-kww-juhwwqt glucosamine for joint health. Patient was informed and verbally consented to the use of an ambient scribe for clinic note documentation during this visit. Plan I discussed with the patient that his intermittent jaw pain is consistent with TMJ dysfunction and reassured him that since it is rare, it can be managed at home with warm compresses, massage, and ibuprofen as needed, without requiring a specialist referral at this time. We reviewed that his blood pressure is well- controlled on his current medications, and I agreed to send refills. Regarding his significant hip pain, I ordered bilateral hip X-rays to assess for arthritis and strongly encouraged him to remain active and work through the pain, suggesting he resume his routine at the [facility]. I explained that he does not qualify for lung cancer screening because he quit smoking over 15 years ago. We agreed to defer routine blood work for six months and to schedule a follow-up visit at that time for a full physical, during which we will review the new lab results. Orders: Orders XR hips NITIN min 3V Today M19.90 - Unspecified osteoarthritis, unspecified site Comprehensive Met. Panel 6 Months Z00.00 - Encounter for general adult medical examination without abnormal findings Lipid Panel 6 Months Z00.00 - Encounter for general adult medical examination without abnormal findings Complete Blood Count Auto Diff 6 Months Z00.00 - Encounter for general adult medical examination without abnormal findings Hemoglobin A1c 6 Months Z00.00 - Encounter for general adult medical examination without abnormal findings TSH reflex Free T4 6 Months Z00.00 - Encounter for general adult medical examination without abnormal findings Vitamin D 25-OH Total 6 Months Z00.00 - Encounter for general adult medical examination without abnormal findings Medications: Changed From metoprolol succinate ER 50 mg PO DAILY 90 tabs 0RF To metoprolol succinate ER 50 mg PO DAILY 90 tabs 3RF 90 days From omeprazole 20 mg PO BID 120 caps 1RF To omeprazole 20 mg PO BID 180 caps 3RF 90 days Refilled amlodipine 10 mg PO DAILY 90 tabs 3RF losartan 100 mg PO DAILY 90 tabs 3RF Patient Instructions: - For your jaw pain, you can use warm pads, massage, and ibuprofen when it occurs. - Continue taking your current medications for blood pressure and acid reflux. I have sent refills to your mail-order pharmacy. - It is very important to stay active despite your hip pain. Try to go back to the health club at the senior center. - You can use Tylenol or ibuprofen for pain, but be careful not to take too much. You can also try irav-nby-vbnyeps glucosamine supplements for your joints. - Please go to the X-ray department today to have X-rays of your hips taken. I will message you with the results. - We will do your next blood work in six months, before your next appointment. - Please schedule a follow-up appointment for a physical in six months.
[2025-07-09 15:03] VITALS: BP 128/72; PULSE 60; RESP 18; TEMP 36.4; O2SAT 96; BMI 31.4
--- OUTSIDE RECORDS SUMMARY | 2025-07-09 17:47 | XMS_ITS | Patient Health Record ---
Author Organization [facility] Address [address] [place] [address] Care Team Providers Care Short Haul Driver Name Role Phone Wenceslao (RETIRED) Ketan BIRMINGHAM Primary Care Provide r Nikolas Taylor Unavailable [phone] Allergies Allergen (clinical drug ingredient) Drug/Non Drug [...] W/U Status Risk Notes Problem Esophageal reflux (265705572) Esophageal reflux (K21.9) Active confirmed Problem Screening for malignant neoplasm of colon (881068096) Encounter for screening for malignant neoplasm of colon (Z12.11) Active confirmed Problem History of adenomatous polyp of colon (096990146) History of adenomatous polyp of colon (Z86.010) Active confirmed Problem Hereditary hemochromatosis (10347768) Hereditary hemochromatosis (E83.110) Active confirmed Problem Screening for malignant neoplasm of rectum (062626002) Encounter for screening for malignant neoplasm of rectum (Z12.12) Active confirmed Problem Silveira's esophagus (970754784) Barretts esophagus without dysplasia (K22.70) Active confirmed Problem Silveira esophagus (121235240) 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) Active confirmed Problem Diverticulosis of sigmoid colon (755994646) Diverticulosis of sigmoid colon (K57.30) Active confirmed Problem Gastroesophageal reflux disease (785987190) GERD without esophagitis (K21.9) Active confirmed Plan [...] Coverage Start Date Coverage End Date [facility] [address] [place] [address] [phone] [id number] HILARIA PARKS Self - patient is the insured MEDICARE OF [place] [address] [place] [address] [phone] [id number] HILARIA PARKS Self - patient is the [...] Surgery Date(Month/Year) back surgery x 3 knee [id number] removed knee surgery-left knee replacement left knee 06/2021
== END 2025-07-09 15:23 | disposition home or self-care (01) ==
LOC: HO.HMCHD 14:53
PROVIDERS: PCP Student in an Organized Health Care Education/Training Program; Visit Provider Student in an Organized Health Care Education/Training Program
DX: I10 Essential (primary) hypertension (principal); K21.9 Gastro-esophageal reflux disease without esophagitis; E83.110 Hereditary hemochromatosis; D75.1 Secondary polycythemia; M19.90 Unspecified osteoarthritis, unspecified site; M26.609 Unspecified temporomandibular joint disorder, unspecified side

== ENCOUNTER 2025-07-09 14:53 | Outpatient (REF) | payer MEDICARE, OTHER, SELFPAY ==
--- NOTE | ~2025-07-09 | XR_ITS ---
EXAMINATION: XR BILATERAL HIPS CLINICAL INFORMATION: M19.90 - Unspecified osteoarthritis, unspecified site COMPARISON: None available. TECHNIQUE: 2 views of each hip FINDINGS: Left: Bone alignment is normal. No fracture or dislocation. Moderate osteoarthritis with joint space narrowing and osteophyte formation. Atherosclerotic disease. Right: Bone alignment is normal. No fracture or dislocation. Moderate osteoarthritis with joint space narrowing and osteophyte formation. Atherosclerotic disease. XR/XR hips NITIN min 3V IMPRESSION: Bilateral osteoarthritis. Electronically signed by: Marie Malone MD 07/09/2025 03:50 PM EDT
== END 2025-07-09 14:54 | disposition home or self-care (01) ==
LOC: HO.XRAY 14:53
PROVIDERS: PCP Internal Medicine; Visit Provider Student in an Organized Health Care Education/Training Program
DX: I10 Essential (primary) hypertension (principal); M19.90 Unspecified osteoarthritis, unspecified site; R68.84 Jaw pain; K21.9 Gastro-esophageal reflux disease without esophagitis; E83.110 Hereditary hemochromatosis; D75.1 Secondary polycythemia; M26.609 Unspecified temporomandibular joint disorder, unspecified side; M25.551 Pain in right hip; M25.552 Pain in left hip; Z96.653 Presence of artificial knee joint, bilateral; Z79.899 Other long term (current) drug therapy
CPT/HCPCS: 73522; 99212

== ENCOUNTER → 2025-07-09 15:33 | Outpatient (BNV) | payer MEDICARE, OTHER, SELFPAY | PROVIDERS: PCP Internal Medicine; Visit Provider Radiology Diagnostic Radiology | DX: M16.0 Bilateral primary osteoarthritis of hip (principal) | CPT/HCPCS: 73522 ==

== ENCOUNTER 2025-08-24 13:50 | Outpatient (REF) | payer MEDICARE, OTHER, SELFPAY ==
--- OUTSIDE RECORDS SUMMARY | 2025-08-24 20:05 | XMS_ITS | Patient Health Record ---
Author Organization [facility] Address [address] [place] [address] Care Team Providers Care Supervisor Print Line Name Role Phone Wenceslao (RETIRED) Ketan BIRMINGHAM Primary Care Provide r Nikolas Taylor Unavailable [phone] Allergies Allergen (clinical drug ingredient) Drug/Non Drug Allergy documented on EMR Reaction Allergy Type Onset Date Status lisinopril Lisinopril Unknown Drug Allergy Activ e Reason For Referral No Information Medications Medication SIG (Take, Route, Frequency, Duration) Notes Start Date End Date Status Metoprolol & Diet Manage Prod 50mg qd Active Omeprazole 20 MG Capsule Delayed Release 1 capsule Orally twice a day Active Losartan Potassium 25 MG Tablet 1 tablet Orally Once a day 02/11/2014 A ctive amLODIPine Besylate 10 MG Tablet Oral; Duration: 90 Active Immunizations Vaccine Route Administration Date Status Comme nts Influenza Unknown 08/10/2021 Administered Social History Social History Additional Details Category Social Info Options Details Miscellaneous: Marital status: Occupation: Patient is retir ed. Section Notes: Nonsmoker; occasional alcoho l Nonsmoker; occasional alcoho l Nonsmoker; occasional alcoho l--4 or 5 beer on the weekends Nonsmoker; occasional alcoho l--4 or 5 beer on the weekends Problems Problem Type SNOMED Code ICD Code Onset Dates Problem Status W/U Status Risk Notes Problem Esophageal reflux (890405777) Esophageal reflux (K21.9) Active confirmed Problem Screening for malignant neoplasm of colon (306077452) Encounter for screening for malignant neoplasm of colon (Z12.11) Active confirmed Problem History of adenomatous polyp of colon (477391024) History of adenomatous polyp of colon (Z86.010) Active confirmed Problem Hereditary hemochromatosis (58133358) Hereditary hemochromatosis (E83.110) Active confirmed Problem Screening for malignant neoplasm of rectum (182346603) Encounter for screening for malignant neoplasm of rectum (Z12.12) Active confirmed Problem Silveira's esophagus (586991786) Barretts esophagus without dysplasia (K22.70) Active confirmed Problem Silveira esophagus (231124662) 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) Active confirmed Problem Diverticulosis of sigmoid colon (588654565) Diverticulosis of sigmoid colon (K57.30) Active confirmed Problem Gastroesophageal reflux disease (678475058) GERD without esophagitis (K21.9) Active confirmed Plan [...] Insured Coverage Start Date Coverage End Date [facility] [address] [place] [address] [id number] HILARIA PARKS Self - patient is the insured MED[place] OF [place] [address] [place] [address] [id number] HILARIA PARKS Self - patient is the [...] Surgery Date(Month/Year) back surgery x 3 knee [id number] removed knee surgery-left knee replacement left knee 06/2021
== END 2025-08-24 13:51 | disposition home or self-care (01) ==
LOC: HO.BBR 13:50
PROVIDERS: PCP Student in an Organized Health Care Education/Training Program; Visit Provider Internal Medicine
DX: E83.110 Hereditary hemochromatosis (principal)
CPT/HCPCS: 85014; 85018; 99195